=== PATIENT | male | born 1960 | race Caucasian/White ===

== ENCOUNTER 2020-06-23 07:31 | Day surgery (SDC) | payer MEDICARE ==
[~2020-06-23] VITALS: Ht 182.9 cm; Wt 88.0 kg
--- NOTE | ~2020-06-23 | OP ---
PATIENT NAME: FÉLIX RODRÍGUEZ MEDICAL RECORD: [id number] :60 LOCATION:[facility] ADMISSION DATE: SURGEON: FLORI SAHNI MD DATE OF OPERATION: 06/23/2020 PREOPERATIVE DIAGNOSIS: Open wound, left below-knee amputation. POSTOPERATIVE DIAGNOSIS: Open wound, left below-knee amputation. PROCEDURE PERFORMED: 1. Incision and debridement of left leg wound (skin and subcutaneous tissue). 2. Application of Kerecis graft, left leg wound. 3. Closure of complex wound, left leg (2.5 cm). INDICATIONS: Mr. 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 He has had some issues with his prosthetic fitting recently and has developed a wound over the tip of the stump. They have been attempting local wound care, but this failed to progress. Decision was made to proceed to the operating room for wound debridement and closure. Risks, benefits, and alternatives of surgery were discussed with the patient and consent was obtained. DESCRIPTION OF PROCEDURE: The patient was met in the holding area where his identity and confirmation of procedure was performed. Left lower extremity was marked. He was taken to the operating room. He was placed supine on the operating table. Anesthesia was administered. A tourniquet was applied to the left thigh and left leg was prepped and draped in a sterile fashion. The patient received preoperative antibiotics and timeout was performed prior to initiating the case. Upon initiation of the case, the wound at the distal stump was elliptically excised. Total wound length measured 2.5 cm. The tissues at the base of the wound were clean and were further debrided with a rongeur. Cultures were obtained from the base of the wound. The wound was then irrigated thoroughly with saline. The edges of the wound were undermined and a small Kerecis graft in a circular pattern was placed over this to provide some supplemental tissue. The wound was then closed with vertical mattress sutures. This provided good closure of those tissues and there is still some prominence of the distal tibia at the amputation site. A sterile dressing was placed. The patient was turned back over to anesthesia where he was awakened, extubated, and taken to recovery room in stable condition. POSTOPERATIVE PLAN: The patient is going to return home with his family today. May remove the dressing in 72 hours and begin dry dressing changes. Avoid any pressure to the end of the stump. We will see him back in clinic in 2 weeks. COMPLICATIONS: None. ESTIMATED BLOOD LOSS: 5 mL. ANESTHESIA: General. TRANSINT:[id number] Voice Confirmation ID: [id number] DOCUMENT ID: [id number] OPERATIVE REPORT [id number] FÉLIX RODRÍGUEZ BRENT M MD CC: [id number] DICTATION DATE: 06/23/20 1204 [facility] WORKER: [id number] [facility] 06/23/[address] [id number]
[~2020-06-23 07:31] MED LIST: BAYER CHEWABLE81 MG PO; BENICAR HCT 401 EAC1 PO; HYDROCODON-ACE1 EA10 PO; TRICOR145 MG PO; XANAX0.5 MG PO; ZOLOFT50 MG PO
[2020-06-23 08:05] LABS: BASOPHILS 0.6 % (0-2); HEMATOCRIT 43.5 % (42.0-54.0); HEMOGLOBIN 14.7 g/dL (13.5-17.5); IMMATURE GRANULOCYTES 0.1 % (0-5); LYMPHOCYTE ABS# 2.74 10x3/uL (1.32-3.57); LYMPHOCYTES 32.9 % (15-50); MCH 30.1 pg (26.0-34.0); MCHC 33.8 g/dL (31.0-37.0); MEAN PLATELET VOLUME 9.8 fL (7.4-10.4); MONOCYTES 8.4 % (2-11); NEUTROPHIL ABS# 4.49 10x3/uL (1.78-5.38); PLATELET COUNT 196 10x3/uL (130-400); RBC 4.89 10x6/uL (4.20-6.10); RDW 13.6 % (11.5-14.5); WBC 8.3 10x3/uL (4.8-10.8)
[2020-06-23 08:10] LABS: ANION GAP 10.5 mmol/L (8-16); CALCIUM 9.6 mg/dL (8.5-10.1); CARBON DIOXIDE 29.7 mmol/L (21.0-32.0); CREATININE - SERUM 1.2 mg/dL (0.6-1.3); POTASSIUM - SERUM 4.2 mmol/L (3.5-5.1)
[2020-06-23] MEDS ORDERED: OMEPRAZOLE40 MG PO (08:51)
[2020-06-23 09:10] VITALS: BP 134/62; Ht 182.9 cm; Wt 88.0 kg
[2020-06-23] MEDS ORDERED: BENICAR20 MG PO (10:41)
--- NOTE | 2020-06-23 14:36 | NUR ---
STATES PAIN NO 3/10 AFTER NORCO. STUMP WITH CDI DRSG. IV D/C'D WTITH CANNULA INTACT, PRESSURE HELD AND DRSG PLACED. DISCHARGE INSTRUCTIONS GIVEN AND PT VERBALIZED AN UNDERSTANDING.
== END 2020-06-23 13:50 | disposition home or self-care (01) ==
LOC: D.OPS 07:31
PROVIDERS: Anesthesiology; ATTEND Orthopaedic Surgery
DX: Z89.512 Acquired absence of left leg below knee (principal); S81.802A Unspecified open wound, left lower leg, initial encounter